=== PATIENT | female | born 1940 | race Caucasian/White ===

== ENCOUNTER 2022-11-01 18:22 | Emergency (ER) | payer OTHER, MEDICARE ==
[2022-11-01] MEDS ORDERED: ACETAMINOPHEN 325 MG TABLET (FP) PO ONE (19:13)
[2022-11-01] MEDS ORDERED: ACETAMINOPHEN 325 MG TABLET (FP) ONE (19:40)
[2022-11-01 20:25] VITALS: RESP 18; TEMP 97.9
[2022-11-01] MEDS ORDERED: ONDANSETRON 4 MG/2 ML VIAL ONE (20:38)
[2022-11-01 21:05] VITALS: BP 155/87; PULSE 87; BMI 20.5
== END 2022-11-01 22:11 | disposition home or self-care (01) ==
LOC: JER 18:22
PROC: 0HQ1XZZ Repair Face Skin, External Approach (ICD-10-PCS; principal; 2022-11-01)
DX: S00.83XA Contusion of other part of head, initial encounter (principal); S01.511A Laceration without foreign body of lip, initial encounter; S02.5XXA Fracture of tooth (traumatic), initial encounter for closed fracture; Y04.2XXA Assault by strike against or bumped into by another person, initial encounter; Y93.K1 Activity, walking an animal
CPT/HCPCS: 70450-TC; 70486-TC; 72125-TC; 99284-25

== ENCOUNTER 2023-06-26 16:08 | Emergency (ER) | payer OTHER, MEDICARE ==
[2023-06-26 16:50] VITALS: BP 126/63; PULSE 66; RESP 17; TEMP 97.6; BMI 21.5
[2023-06-26 17:10] LABS: BASO % 0.6 % (0-2.0); EOS % 2.7 % (0-4.5); HEMATOCRIT 39.5 % (32.4-45.2); HEMOGLOBIN 13.4 GM/dL (10.7-15.3); LYMPH % 18.4 % (8-40); MCH 29.9 pg (25.7-33.7); MCHC 33.8 g/dl (32.0-36.0); MEAN CELL VOLUME 88.5 fl (80-96); MONO % 7.5 % (3.8-10.2); NEUT % 70.8 % (42.8-82.8); PLATELET COUNT 297 10^3/uL (134-434); RBC 4.47 M/mm3 (3.60-5.2); RDW 14.8 % (11.6-15.6); WHITE BLOOD COUNT 9.7 K/mm3 (4.0-10.0)
[2023-06-26] MEDS: SODIUM CHLORIDE 1,000 ML IV STA (17:15)
[2023-06-26 17:22] LABS: INR 0.99 (0.83-1.09); PROTHROMBIN TIME (PATIENT) 11.5 SEC (9.7-13.0)
[2023-06-26 17:24] LABS: ACTIVATED PTT 24.3 SECONDS (25.2-36.5)
[2023-06-26 18:08] LABS: CHLORIDE 109 mmol/L (98-107); SODIUM 134 mmol/L (136-145)
[2023-06-26 18:11] LABS: ALBUMIN 3.3 g/dl (3.4-5.0); BLOOD UREA NITROGEN 21.3 mg/dL (7-18); CO2 24 mmol/L (21-32); GLUCOSE,RANDOM 136 mg/dL (74-106)
[2023-06-26 18:14] LABS: CREATININE 0.8 mg/dL (0.55-1.3)
[2023-06-26 18:15] LABS: TOT PROT 6.9 g/dl (6.4-8.2)
[2023-06-26 18:16] LABS: ALK PHOS 102 U/L (45-117); ANION GAP 1 mmol/L (4-13); BILIRUBIN,TOTAL 1.3 mg/dL (0.2-1); POTASSIUM > 10.0 mmol/L (3.5-5.1); SGOT/AST 87 U/L (15-37); SGPT/ALT 25 U/L (13-61)
[2023-06-26 19:10] LABS: EPI CELLS 12 /uL (0-25.1); HYALINE CASTS 1 /uL (0-3.1); URINE APPEARANCE Error; URINE BACTERIA 121 /uL (0-1359); URINE BILIRUBIN NEGATIVE (NEGATIVE); URINE COLOR YELLOW; URINE GLUCOSE (UA) NEGATIVE (NEGATIVE); URINE KETONE NEGATIVE (NEGATIVE); URINE LEUK ESTERASE 3+ (NEGATIVE); URINE NITRITE NEGATIVE (NEGATIVE); URINE PROTEIN NEGATIVE (NEGATIVE); URINE RBC 13 /uL (0-23.9); URINE UROBILINOGEN 0.2 mg/dL (0.2-1.0); URINE WBC 342 /uL (0-25.8)
[2023-06-26 19:25] LABS: POTASSIUM 3.8 mmol/L (3.5-5.1)
[2023-06-26 19:27] LABS: CALCIUM 8.9 mg/dL (8.5-10.1)
[2023-06-26 19:28] LABS: BLOOD UREA NITROGEN 19.3 mg/dL (7-18)
[2023-06-26 19:31] LABS: CREATININE 0.7 mg/dL (0.55-1.3)
[2023-06-26] MEDS ORDERED: CEFTRIAXONE 1 GM/50 ML BAG ONE (19:38)
[2023-06-26] MEDS: CEFTRIAXONE 1 GM in DEXTROSE 5%-WATER - 50 ML IVPB ONE (19:46)
== END 2023-06-26 21:42 | disposition home or self-care (01) ==
LOC: JER 16:08
PROC: 3E03329 Introduction of Other Anti-infective into Peripheral Vein, Percutaneous Approach (ICD-10-PCS; principal; 2023-06-26)
PROC: 3E0337Z Introduction of Electrolytic and Water Balance Substance into Peripheral Vein, Percutaneous Approach (ICD-10-PCS; 2023-06-26)
DX: R55 Syncope and collapse (principal); R42 Dizziness and giddiness; N39.0 Urinary tract infection, site not specified
CPT/HCPCS: 36415; 71045-TC-FY; 80048; 80053; 81003; 82962; 83735; 84484; 85025; 85610; 85730; 87086; 93005; 93010; 99285-25